=== PATIENT | male | born 2000 | race Caucasian/White ===

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

== ENCOUNTER 2022-04-07 19:30 | Emergency (ER) | payer OTHER ==
[~2022-04-07] VITALS: Ht 175.3 cm; Wt 74.4 kg
[~2022-04-07 19:30] MED LIST: CEPH-588 PO; IBUP-2213 PO; SULF-59 PO
[2022-04-07 19:47] VITALS: BP 112/71
--- NOTE | 2022-04-07 19:53 | NUR ---
COVID and flu swabs collected and sent to lab.
--- NOTE | 2022-04-07 20:05 | NUR ---
VEDA CARR examining patient
--- NOTE | 2022-04-07 20:39 | NUR ---
Patient returned back from X-ray.
[2022-04-07] MEDS ORDERED: ALBU0.0912 IH (20:59)
[2022-04-07] MEDS ORDERED: ROB PO (20:59)
[2022-04-07 21:09] VITALS: BP 112/71
--- NOTE | 2022-04-07 21:09 | NUR ---
Patient discharged with v/s stable. Written and verbal after care instructions given and explained. Patient alert, oriented and verbalized understanding of instructions. Ambulatory with steady gait. All questions addressed prior to discharge. ID band removed. Patient advised to follow up with PMD. Rx of Robittussin and Proventil HFA given. Patient educated on indication of medication including possible reaction and side effects. Opportunity to ask questions provided and answered.
== END 2022-04-07 21:09 | disposition home or self-care (01) ==
LOC: MED 19:30
DX: J20.9 Acute bronchitis, unspecified (principal); Z20.822 Contact with and (suspected) exposure to COVID-19; Z79.899 Other long term (current) drug therapy
CPT/HCPCS: 71045; 99284

== ENCOUNTER 2022-05-20 16:55 | Emergency (ER) | payer OTHER ==
[~2022-05-20] VITALS: Ht 175.3 cm; Wt 86.2 kg
[~2022-05-20 16:55] MED LIST changes: +ALBU0.0912 IH; +ROB PO
[2022-05-20 17:05] VITALS: BP 123/72
--- NOTE | 2022-05-20 17:05 | NUR ---
PT AMBULATED TO LOBBY
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
[2022-05-20] MEDS ORDERED: IBUPROFEN 800 MG TAB PO ONE (17:55)
--- NOTE | 2022-05-20 19:52 | NUR ---
PT CALLED FOR DC INSTRUCTIONS, NO ANSWER.
--- NOTE | 2022-05-20 19:54 | NUR ---
PT CALLED FOR DC INSTRUCTIONS. NO ANSWER.
--- NOTE | 2022-05-20 19:55 | NUR ---
PT CALLED. LEFT W/O DC INSTRUCTIONS. NO CONTACT WITH PT.
--- NOTE | 2022-05-20 19:58 | NUR ---
PT LEFT WITHOUT DC INSTRUCTIONS. NO CONTACT WITH PT. NO ASSESSMENT AT TIME OF DC.
== END 2022-05-20 19:58 | disposition home or self-care (01) ==
LOC: MED 16:55
DX: S63.611A Unspecified sprain of left index finger, initial encounter (principal); S63.613A Unspecified sprain of left middle finger, initial encounter; S63.615A Unspecified sprain of left ring finger, initial encounter; M79.645 Pain in left finger(s); W22.8XXA Striking against or struck by other objects, initial encounter; Y93.89 Activity, other specified; Y92.89 Other specified places as the place of occurrence of the external cause; Y99.0 Civilian activity done for income or pay
CPT/HCPCS: 73130; 99283

== ENCOUNTER 2022-08-14 15:41 | Emergency (ER) | payer OTHER ==
[~2022-08-14] VITALS: Ht 172.7 cm; Wt 87.1 kg
[2022-08-14 15:47] VITALS: BP 121/73
--- NOTE | 2022-08-14 16:13 | NUR ---
Thomas arriaga in ED - 08/14/22 at 1615 by [email or web address] Patient discharged with v/s stable. Written and verbal after care instructions given and explained. Patient verbalized understanding. Ambulatory with steady gait. All questions addressed prior to discharge. Advised to follow up with PMD.
--- NOTE | 2022-08-14 16:15 | NUR ---
HERE FOR CHEST WALL PAIN, EKG DONE, NSR, NO ST SEGMENT ELEVATION OR DEPRESSION, NO Q WAVES, NO ARRHYTHMIA X R DONE, LABS DRAWN, AWAITS RESULTS 02 SAT 99% RA, SR UP TIMES 2
[2022-08-14 16:41] LABS: BASOPHILS % (AUTO) 0.5 % (0.0-2.0); EOSINOPHILS # (AUTO) 0.2 K/uL (0-0.4); EOSINOPHILS % (AUTO) 3.2 % (0.0-4.0); HEMATOCRIT 44.6 % (36-52); LYMPHOCYTES # (AUTO) 2.7 K/uL (2.0-11.5); LYMPHOCYTES % (AUTO) 37.6 % (20.5-51.1); MEAN CORPUSCULAR HEMOGLOBIN 29 pg (27-31); MEAN CORPUSCULAR HGB CONC 34 g/dL (33-37); MEAN CORPUSCULAR VOLUME 86.6 fL (80-94); MONOCYTES # (AUTO) 0.5 K/uL (0.8-1.0); MONOCYTES % (AUTO) 7.4 % (1.7-9.3); NEUTROPHILS # (AUTO) 3.7 K/uL (1.8-7.7); NEUTROPHILS % (AUTO) 51.3 % (42.2-75.2); PLATELET COUNT (AUTO) 223 K/uL (140-450); RED BLOOD CELL COUNT(AUTO) 5.16 MIL/uL (4.20-6.10); RED CELL DISTRIBUTION WIDTH 13.2 % (11.6-13.7); WHITE BLOOD COUNT (AUTO) 7.3 K/uL (4.5-11.0)
[2022-08-14 16:53] LABS: ANION GAP 12.9 (8-16); CARBON DIOXIDE 30.7 mmol/L (21-32); POTASSIUM 4.6 mmol/L (3.5-5.1)
--- NOTE | 2022-08-14 17:33 | NUR ---
Patient discharged with v/s stable. Written and verbal after care instructions given and explained. Patient verbalized understanding. Ambulatory with steady gait. All questions addressed prior to discharge. Advised to follow up with PMD.
[2022-08-14 17:34] VITALS: BP 123/76
== END 2022-08-14 17:33 | disposition home or self-care (01) ==
LOC: MED 15:41
DX: R07.9 Chest pain, unspecified (principal); Z79.899 Other long term (current) drug therapy; Z79.1 Long term (current) use of non-steroidal anti-inflammatories (NSAID); Z79.2 Long term (current) use of antibiotics
CPT/HCPCS: 36415; 71045; 80048; 84484; 85025; 93005; 99285; Q0092

== ENCOUNTER 2023-06-02 15:46 | Emergency (ER) | payer OTHER ==
[~2023-06-02] VITALS: Ht 175.3 cm; Wt 81.6 kg
[2023-06-02 16:33] VITALS: BP 113/68; PULSE 88; RESP 16; TEMP 97.8; O2SAT 100
[2023-06-02] MEDS ORDERED: ACET-10509 PO (18:43)
== END 2023-06-02 18:58 | disposition home or self-care (01) ==
LOC: MED 15:46
DX: S06.0X0A Concussion without loss of consciousness, initial encounter (principal); Z79.899 Other long term (current) drug therapy; Z79.1 Long term (current) use of non-steroidal anti-inflammatories (NSAID); Z79.2 Long term (current) use of antibiotics; W22.8XXA Striking against or struck by other objects, initial encounter; Y92.89 Other specified places as the place of occurrence of the external cause; Y93.89 Activity, other specified; Y99.8 Other external cause status
CPT/HCPCS: 70450; 99284

== ENCOUNTER 2023-10-30 23:03 | Emergency (ER) | payer OTHER ==
[~2023-10-30] VITALS: Ht 177.8 cm; Wt 98.0 kg
[~2023-10-30 23:03] MED LIST changes: +ACET-10509 PO
[2023-10-30 23:08] VITALS: BP 99/75; PULSE 72; RESP 18; TEMP 97.7; O2SAT 99
[2023-10-31] MEDS: KETOROLAC 60 MG/2 ML VIAL IM ONE (00:06)
[2023-10-31 00:11] LABS: BASOPHILS % (AUTO) 0.5 % (0.0-2.0); EOSINOPHILS # (AUTO) 0.3 K/uL (0-0.4); HEMOGLOBIN 15.1 g/dL (12.0-18.0); LYMPHOCYTES # (AUTO) 2.8 K/uL (2.0-11.5); LYMPHOCYTES % (AUTO) 33.3 % (20.5-51.1); MEAN CORPUSCULAR HEMOGLOBIN 30 pg (27-31); MEAN CORPUSCULAR HGB CONC 34 g/dL (33-37); MEAN CORPUSCULAR VOLUME 88.1 fL (80-94); MONOCYTES # (AUTO) 0.9 K/uL (0.8-1.0); MONOCYTES % (AUTO) 10.8 % (1.7-9.3); NEUTROPHILS # (AUTO) 4.4 K/uL (1.8-7.7); NEUTROPHILS % (AUTO) 52.4 % (42.2-75.2); PLATELET COUNT (AUTO) 198 K/uL (140-450); RED CELL DISTRIBUTION WIDTH 13.1 % (11.6-13.7); WHITE BLOOD COUNT (AUTO) 8.3 K/uL (4.8-10.8)
[2023-10-31 00:23] LABS: CALCIUM 10.1 mg/dL (8.5-10.1); CARBON DIOXIDE 32.3 mmol/L (21-32); CREATININE 1.1 mg/dL (0.6-1.3); POTASSIUM 4.3 mmol/L (3.5-5.1)
[2023-10-31 00:25] LABS: INR 1.02 (0.8-1.2); PARTIAL THROMBOPLASTIN TIME 25.9 secs (22-35.6); PROTHROMBIN TIME 10.7 secs (10.8-13.4)
[2023-10-31] MEDS ORDERED: MELO-176 PO (00:33)
[2023-10-31 00:35] LABS: D-DIMER < 100 ng/ml (0-400)
[2023-10-31 00:44] LABS: ALANINE AMINOTRANSFERASE 32 U/L (12-78); ALBUMIN 4.1 g/dL (3.4-5.0); ALKALINE PHOSPHATASE 114 U/L (50-136); ASPARTATE AMINOTRANSFERASE 27 U/L (15-37); BILIRUBIN,DIRECT 0.1 mg/dL (0.0-0.3); TOTAL BILIRUBIN 0.3 mg/dL (0.0-1.0); TOTAL PROTEIN, SERUM 7.2 g/dL (6.4-8.2)
[2023-10-31 01:16] VITALS: BP 99/75; PULSE 72; RESP 18; TEMP 97.7; O2SAT 99
== END 2023-10-31 01:16 | disposition home or self-care (01) ==
LOC: MED 23:03
DX: R07.89 Other chest pain (principal); J45.909 Unspecified asthma, uncomplicated; Z79.1 Long term (current) use of non-steroidal anti-inflammatories (NSAID); Z79.2 Long term (current) use of antibiotics; Z79.899 Other long term (current) drug therapy
CPT/HCPCS: 36415; 71046; 80048; 80076; 83880; 84484; 85025; 85379; 85610; 85730; 93005; 96372; 99285; J1885